=== PATIENT | female | born 1955 | race Caucasian/White ===

== ENCOUNTER 2018-06-26 12:14 | Emergency (ER) | payer BC ==
[2018-06-26] MEDS ORDERED: Tetanus/Diphtheria Toxoids 0.5 ml Syringe IM ONE ×2 (12:33→12:53)
[2018-06-26] MEDS ORDERED: Bacitracin Ointment 30 GM TUBE TOP STA (12:33)
[2018-06-26] MEDS ORDERED: Bacitracin 500 Units/gm Oint Foilpak UD ONE (12:53)
--- NOTE | 2018-06-26 13:00 | C.PDOC ---
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 Patient reports, sustained mechanical fall when " trip over the curb and fell down, injured face and my right knee" . Pt admits, was able to ambulate on scene without difficulty. Otherwise, patient denies LOC, syncope, headache, dizziness, visual changes, focal deficits, neck pain, drooling, trismus, chest pain, back pain, denies weakness, deformity, sensory or vascular deficits to B?L UEs and lEs. Ambulatory in ED with stable gait, not in any apparent distress.. - HPI Time Seen by Provider: 06/26/18 12:17 Chief Complaint (Nursing): Trauma History Per: Patient History/Exam Limitations: no limitations Injury Occurred (Timing): Just Before Arrival Location Of Injury: Right: Knee, Anterior: Hand - Fall Fall:Prior To Injury: Tripped Past Medical History Reviewed: Historical Data, Nursing Documentation, Vital Signs Vital Signs: Last Vital Signs Temp 98.8 F 06/26/18 12:21 Pulse 82 06/26/18 12:21 Resp 18 06/26/18 12:21 BP 156/89 H 06/26/18 12:21 Pulse Ox 95 06/26/18 12:21 Family History: States: No Known Family Hx - Social History Hx Alcohol Use: No Hx Substance Use: No - Immunization History Hx Tetanus Toxoid Vaccination: No Hx Influenza Vaccination: No Hx Pneumococcal Vaccination: No Review Of Systems Except As Marked, All Systems Reviewed And Found Negative. ENT: Negative for: Other (drooling ) Cardiovascular: Negative for: Chest Pain Musculoskeletal: Positive for: Other (head injury ). Negative for: Neck Pain Skin: Positive for: Other (facial contusion) Neurological: Negative for: Headache, Dizziness, Other (LOC; syncope) Physical Exam - Physical Exam Appears: Well, Non-toxic, No Acute Distress Skin: Normal Color, Warm, No Ecchymosis Head: Atraumatic, Normacephalic Eye(s): bilateral: PERRL, EOMI Ear(s): Bilateral: Normal Nose: No Flaring, No Deformity, No Tenderness, Other (mild abrasion over nasal bridge; mild abrasion on left nasolabial fold) Oral Mucosa: Moist, No Drooling Tongue: Normal Appearing Lips: Swelling (mild left upper), Laceration (left upper inner lip small puncture laceration with mild local edema) Teeth: Normal Dentition Gingiva: No Swelling, No Tender, No Bleeding, Other (ecchymosis on left upper gum) Throat: No Drooling Neck: Normal ROM, Trachea Midline, No Midline Cervical Tenderness, No Paracervical Tenderness, No Step Off Deformity, Supple Chest: Symmetrical, No Deformity, No Tenderness, No Ecchymosis Cardiovascular: Rhythm Regular, No Murmur, No JVD Respiratory: No Decreased Breath Sounds, No Accessory Muscle Use, No Stridor, No Wheezing Gastrointestinal/Abdominal: Soft, No Tenderness, No Distention, No Guarding Back: No Vertebral Tenderness, No Paraspinal Tenderness Extremity: Normal ROM (x4), Tenderness (external mild tenderness anterior aspect of right knee with abrasion), No Pedal Edema, Capillary Refill (<2 sec), No Deformity, No Swelling Extremity: Bilateral: Normal Color And Temperature Pulses: Left Dorsalis Pedis: Normal, Right Dorsalis Pedis: Normal DTR: Knee (R): 2+, Knee (L): 2+, Ankle (R): 2+, Ankle (L): 2+ Neurological/Psych: Oriented x3, Normal Speech, Normal Cognition, Normal Motor, Normal Sensation, Normal Reflexes Gait: Steady ED Course And Treatment O2 Sat by Pulse Oximetry: 95 (RA) Pulse Ox Interpretation: Normal - CT Scan/US CT head w/o contrast Other Rad Studies (CT/US): Radiology Report Reviewed CT/US Interpretation: Creator : Jeff Turk MD. Dictator : Jeff Turk MD. Knurling Machine Tender : Transfer Man : Jeff Turk MD. Approver2 : Report Date : 06/26/2018 13:51:22. My Comment : . This report is currently processing and HAS NOT BEEN OFFICIALLY SIGNED BY THE PHYSICIAN - ESTIMATED TIME OF APPROVAL IS 06/26/2018 13:56. Date of service: 06/26/2018. PROCEDURE: CT HEAD WITHOUT CONTRAST. HISTORY: injury. COMPARISON: None available. TECHNIQUE: Axial computed tomography images were obtained through the head/brain without intravenous contrast. Radiation dose: Total exam DLP = 1097.76 mGy-cm. This CT exam was performed using one or more of the following dose reduction techniques: Automated exposure control, adjustment of the mA and/or kV according to patient size, and/or use of it erative reconstruction technique. FINDINGS: HEMORRHAGE: No intracranial hemorrhage. BRAIN: No mass effect or edema. Scattered focal lucencies in the subcortical and periventricular white matter suggestive for chronic microvascular ischemic change. Punctate hypodensities in the bilateral basal ganglia are suggestive for prominent perivascular spaces versus small lacunar infarcts. Additional small focal hypodensity seen within the medulla on series 2, image 5 may represent a small lacunar infarct. VENTRICLES: Unremarkable. No hydrocephalus. CALVARIUM: Unremarkable. PARANASAL SINUSES: Unremarkable as visualized. No significant inflammatory changes. MASTOID AIR CELLS: Unremarkable as visualized. No inflammatory changes. OTHER FINDINGS: None. IMPRESSION: No acute intracranial abnormality. Chronic microvascular ischemic changes. Small bilateral basal ganglia lacunar infarcts. Additional small focal hypodensity seen within the medulla on series 2, image 5 may represent a small lacunar infarct. If symptoms persists, consider correlation with MRI. CT max/face Other Rad Studies (CT/US): Radiology Report Reviewed CT/US Interpretation: Creator : Jeff Turk MD. Dictator : Jeff Turk MD. Knurling Machine Tender : Transfer Man : Jeff Turk MD. Approver2 : Report Date : 06/26/2018 14:16:28. My Comment : . Date of service: 06/26/2018. PROCEDURE: CT MAXILLOFACIAL BONES WITHOUT CONTRAST. HISTORY: injury. COMPARISON: None available. TECHNIQUE: Contiguous axial CT images of the maxillofacial bones were obtained. Coronal and sagittal reformats were generated. Radiation dose: Total exam DLP = 625.64 mGy-cm. This CT exam was performed using one or more of the following dose reduction techniques: Automated exposure control, adjustment of the mA and/or kV according to patient size, and/or use of iterative reconstruction technique. FINDINGS: NASAL BONES: Unremarkable. ORBITS: Unremarkable. PARANASAL SINUSES/ MASTOIDS: Mild mucosal thickening of the ethmoid air cells. MAXILLA: 1.7 centimeter mucosal retention cyst and or polyp within the inferior left maxillary sinus.Mild mucosal thickening of the left maxillary sinus. MANDIBLE/ TEMPOROMANDIBULAR JOINTS: Unremarkable. SKULL BASE: Unremarkable. TEMPORAL BONES: Middle ears and mastoid grossly unremarkable. OTHER FINDINGS: Bony ossific density seen at the undersurface of the left frontal cranium on series 2, image 80 which appears well corticated, likely chronic ossification. Degenerative changes in the cervical spine. Productive change at the atlantodental interval. Nasal septal deviation. Mucosal thickening and hypertrophy of the inferior nasal turbinates. IMPRESSION: Negative acute. Sinus mucosal disease. Additional findings as above. Progress Note: Impression: head injury , facial contusion, abrasion, knee contusion. Plans: -- CT maxillofacial. -- CT head. -- XR right knee. -- tylenol. -- bacitracin. -- tenivac. -- zofran. Reassess: On re-eval, pt is afebrile, hemodynamically stable. Non-toxic. Ambulatory in ED with stable gait. PulseOx 100% on RA. had: AT/NC. ENT: (+) abrasions to nasal bridge, left naso- labial fold, Mild contusion to Left upper lip r/o left upper central teeth avulsion. no other acute findings. Uvula midline, no edema. Neck: Supple, (-) midline tenderness. Lungs: CTA B/L, BS equal B/L. Abd: Soft, non-tender. Neurologically intact. FAROM, no neurovascular deficits. CT head: chornic changes, no acute findings relaited to injury. CT max/face review. Imagings review and discussed with Dr. Masters and discharge with outpt f/u recommend. Imagings results review and discussed with patient, recommend to F/U with PMD, Nuerology in 1-2 days for re-eval. Pt advised OBS 48 hrs for any sign of head injury-return if any new changes. Advised on wound care. return to Ed if any worsneing or new changes. Disposition Counseled Patient/Family Regarding: Diagnosis, Need For Followup - Disposition Referrals: [facility] at [facility] [Outside] Sarah Martinez MD [Staff Provider] - Disposition: HOME/ ROUTINE Disposition Time: 14:02 Condition: STABLE Additional Instructions: OBSERVE 48 HOURS FOR ANY SIGN OF HEAD INJURY-INTRACTABLE HEADACHE, VOMITING, VISUAL CHANGES, FOCAL DEFICITS-RETURN TO ED IMMEDIATELY FOR RE-EVALUATION. APPLY ANTIBIOTIC CREAM DAILY TO FACIAL ABRASION FOLLOW UP WITH PMD IN 2-3 DAYS FOR RE-EVALUATION AND FURTHER TREATMENT NEED , PLEASE PROVIDE TO YOUR DOCTOR CT HEAD RESULTS FOR EVALUATION. 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 - Scribe Statement The provider has reviewed the documentation as recorded by the Tc King Do All medical record entries made by the Scribjoana were at my direction and personally dictated by me. I have reviewed the chart and agree that the record accurately reflects my personal performance of the history, physical exam, medical decision making, and the department course for this patient. I have also personally directed, reviewed, and agree with the discharge instructions and disposition.
--- NOTE | 2018-06-26 13:54 | CT ---
Date of service: 06/26/2018 PROCEDURE: CT HEAD WITHOUT CONTRAST. HISTORY: injury COMPARISON: None available. TECHNIQUE: Axial computed tomography images were obtained through the head/brain without intravenous contrast. Radiation dose: Total exam DLP = 1097.76 mGy-cm. This CT exam was performed using one or more of the following dose reduction techniques: Automated exposure control, adjustment of the mA and/or kV according to patient size, and/or use of iterative reconstruction technique. FINDINGS: HEMORRHAGE: No intracranial hemorrhage. BRAIN: No mass effect or edema. Scattered focal lucencies in the subcortical and periventricular white matter suggestive for chronic microvascular ischemic change. Punctate hypodensities in the bilateral basal ganglia are suggestive for prominent perivascular spaces versus small lacunar infarcts. Additional small focal hypodensity seen within the medulla on series 2, image 5 may represent a small lacunar infarct. VENTRICLES: Unremarkable. No hydrocephalus. CALVARIUM: Unremarkable. PARANASAL SINUSES: Unremarkable as visualized. No significant inflammatory changes. MASTOID AIR CELLS: Unremarkable as visualized. No inflammatory changes. OTHER FINDINGS: None. IMPRESSION: No acute intracranial abnormality. Chronic microvascular ischemic changes. Small bilateral basal ganglia lacunar infarcts. Additional small focal hypodensity seen within the medulla on series 2, image 5 may represent a small lacunar infarct. If symptoms persists, consider correlation with MRI.
--- NOTE | 2018-06-26 14:19 | CT ---
Date of service: 06/26/2018 PROCEDURE: CT MAXILLOFACIAL BONES WITHOUT CONTRAST HISTORY: injury COMPARISON: None available. TECHNIQUE: Contiguous axial CT images of the maxillofacial bones were obtained. Coronal and sagittal reformats were generated. Radiation dose: Total exam DLP = 625.64 mGy-cm. This CT exam was performed using one or more of the following dose reduction techniques: Automated exposure control, adjustment of the mA and/or kV according to patient size, and/or use of iterative reconstruction technique. FINDINGS: NASAL BONES: Unremarkable. ORBITS: Unremarkable. PARANASAL SINUSES/ MASTOIDS: Mild mucosal thickening of the ethmoid air cells. MAXILLA: 1.7 centimeter mucosal retention cyst and or polyp within the inferior left maxillary sinus.Mild mucosal thickening of the left maxillary sinus. MANDIBLE/ TEMPOROMANDIBULAR JOINTS: Unremarkable. SKULL BASE: Unremarkable. TEMPORAL BONES: Middle ears and mastoid grossly unremarkable. OTHER FINDINGS: Bony ossific density seen at the undersurface of the left frontal cranium on series 2, image 80 which appears well corticated, likely chronic ossification. Degenerative changes in the cervical spine. Productive change at the atlantodental interval. Nasal septal deviation. Mucosal thickening and hypertrophy of the inferior nasal turbinates. IMPRESSION: Negative acute. Sinus mucosal disease. Additional findings as above.
[2018-06-26 14:34] VITALS: BP 130/81; PULSE 78; RESP 17; TEMP 99; O2SAT 97
--- NOTE | 2018-06-26 15:13 | RAD ---
Date of service: 06/26/2018 PROCEDURE: Right Knee Radiographs. Three views HISTORY: injury COMPARISON: None. FINDINGS: BONES: No evidence of acute displaced fracture or dislocation. Well corticated ossific density adjacent to the proximal fibula may represent an accessory ossicle. JOINTS: Moderate medial and patellofemoral compartment joint space narrowing. JOINT EFFUSION: Small suprapatellar joint effusion. OTHER FINDINGS: None. IMPRESSION: Negative acute. If pain persists, consider MRI.
== END 2018-06-26 14:33 | disposition home or self-care (01) ==
LOC: C.ER 12:14
DX: S01.531A Puncture wound without foreign body of lip, initial encounter (principal); S80.01XA Contusion of right knee, initial encounter; S00.31XA Abrasion of nose, initial encounter; S80.211A Abrasion, right knee, initial encounter; W01.0XXA Fall on same level from slipping, tripping and stumbling without subsequent striking against object, initial encounter